=== PATIENT | female | born 1980 | race Caucasian/White ===

== ENCOUNTER 2025-09-16 09:42 | Outpatient (REF) | payer BC, SELFPAY ==
[2025-09-16 15:05] LABS: Total Hemoglobin (HGBA1C) 3841.7749 umol/L
[2025-09-16 15:38] LABS: Cholesterol 206 mg/dL (<200); HDL Cholesterol 40 mg/dL (>40); Triglycerides 176 mg/dL (<150)
[2025-09-16 15:46] LABS: Folate 13.5 ng/mL (> or = 4.0); Vitamin B12 469 pg/mL (200-900)
[2025-09-19 17:12] LABS: Lyme Abs Screen <0.90 index
[2025-09-23 06:53] LABS: Estradiol Ultra Sensitive 172 pg/mL
[2025-09-23 17:39] LABS: Testosterone, Free 13.1 pg/mL (0.1-6.4)
== END 2025-09-16 09:43 | disposition home or self-care (01) ==
LOC: HO.WFDLDS 09:42
PROVIDERS: PCP Internal Medicine; Visit Provider Internal Medicine
DX: Z00.00 Encounter for general adult medical examination without abnormal findings (principal); E34.9 Endocrine disorder, unspecified; R51.9 Headache, unspecified; E78.5 Hyperlipidemia, unspecified; H81.10 Benign paroxysmal vertigo, unspecified ear; M72.2 Plantar fascial fibromatosis; N95.1 Menopausal and female climacteric states; Z13.1 Encounter for screening for diabetes mellitus
CPT/HCPCS: 36415; 80061; 82607; 82627; 82670; 82746; 83036; 84144; 84402; 84403; 86617; 86618; 96127

== ENCOUNTER 2025-09-16 09:42 | Outpatient (AMB) | payer BC, SELFPAY ==
--- NOTE | 2025-09-16 09:44 | MHC.PC.OV ---
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. Transfer from Dr Artur Che-Has imitrex but has not used. Normal brain MRI in 2021January 2024-2 days ago started with vertigo. Has dramamine but not very effective. Had an episode earlier in the year after chiropractor. Had meclizine at the time Had consult with integrative medicine [facility]. Hormone testing-placed on testosterone and progesterone DHEA and red yeast rice Suffering from bilateral plantar fasciitis, heel pain. Walking daily. 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 Pap 03/2023 Has had callbacks for mammo in the past Mammo 12/2024 Colonoscopy 11/2024 ROS see HPI PHYSICAL EXAM: GENERAL: Alert and oriented x 3. NAD EYES: EOMI. Anicteric. HENT: Moist mucous membranes. No scleral icterus. No cervical lymphadenopathy. LUNGS: Clear to auscultation bilaterally. CARDIOVASCULAR: Regular rate and rhythm. No murmur. No JVD. ABDOMEN: Soft, non-tender +bs EXTREMITIES: No edema. Non-tender. SKIN: No rashes or lesions. Warm. NEUROLOGIC: No focal neurological deficits. CN II-XII grossly intact PSYCHIATRIC: Cooperative. Appropriate mood and affect [facility] Medical History Headache Eczema Kidney stone Surgical History H/O tubal ligation No pertinent past surgical history Family History Mother Heart attack Maternal Uncle Substance abuse Maternal Grandmother Cardiovascular disease Pancreatic cancer Father Brain cancer Lung cancer Social History Housing: House Alcohol intake: never Patient Tobacco Use Status: Never used Tobacco e-Cigarette/Vaping Use: Never Used Second Hand Smoke Exposure: No service: No Current occupational status: employed Current occupation: [employer] Current occupational exposures/hazards: No Cognitive needs: No Hearing needs: No Vision needs: No Questionnaire PHQ-9 Over the last 2 weeks, how often have you been bothered by any of the following problems? 1. Little interest or pleasure in doing things: not at all 2. Feeling down, depressed, or hopeless: not at all 3. Trouble falling or staying asleep, or sleeping too much: not at all 4. Feeling tired or having little energy: not at all 5. Poor appetite or overeating: not at all 6. Feeling bad about yourself - or that you are a failure or have let yourself or your family down: not at all 7. Trouble concentrating on things, such as reading the newspaper or watching television: not at all 8. Moving or speaking so slowly that other people could have noticed. Or the opposite - being so fidgety or restless that you have been moving around a lot more than usual: not at all 9. Thoughts that you would be better off or of hurting yourself in some way: not at all Total score: 0 Depression Screening Interpretation: Negative Depression Screening Done: Yes 89720 - PHQ-9 Billing: Yes Source: Developed by Drs. Vinicio Murillo, Analisa Palma, Carter Ortiz and colleagues, with an educational devyn from [employer]. Thrive Questionnaire Date Thrive assessed: 09/11/25 I am a: Patient What is your living situation today?: I have a steady place to live Within the past 12 months, did the food you bought not last and you didn't have the money to get more?: Never true Within the past 12 months, did you worry whether your food would run out before you got money to buy more?: Never true Do you have trouble paying for medicines?: No Do you have trouble getting transportation to medical appointments?: No Do you have trouble paying your heating and electricity bill?: No Do you have trouble taking care of your child, family member or friend?: No Do you have trouble with day-to-day activities such as bathing, preparing meals, shopping, managing finances, etc.?: No Are you currently unemployed and looking for a job?: No Are you interested in more education?: No Please select the resources that you would like help with: None Currently or been in a relationship where the following occur: No concerns reported THRIVE Score: 0 AUDIT C Alcohol Use Questionnaire (AUDIT-C) 1. How often do you have a drink containing alcohol?: Never 3. How often do you have six or more drinks on one occasion?: Never Total Score: 0 AUGUSTO-7 AMB Questionnaire AUGUSTO-7 Date AUGUSTO - 7 assessed: 09/16/25 Feeling nervous, anxious, or on edge: 0 = Not at all Not being able to stop or control worryin = Not at all Worrying too much about different things: 1 = Several days Trouble relaxin = Several days Being so restless that it is hard to sit still: 0 = Not at all Becoming easily annoyed or irritable: 0 = Not at all Feeling afraid as if something awful might happen: 0 = Not at all Total AUGUSTO-7 score (0-4 normal; 5-9 mild; 10-14 moderate; 15-21 severe): 2 Source: Developed by Drs. Vinicio Murillo, Analisa Palma, Carter Ortiz and colleagues, with an educational devyn from [employer]. AUGUSTO-7 Assessment Billing AUGUSTO-7 Assessment Tool: AUGUSTO-7 Assessment 69254 Physical exam (Primary Care) Vital Signs: Last Vital Signs Temp 98 F 09/16/25 09:51 Pulse 69 09/16/25 09:51 Resp 20 09/16/25 09:51 BP 138/78 09/16/25 09:51 Pulse Ox 97 09/16/25 09:51 Oxygen Delivery Method Room Air 09/16/25 09:51 BMI result Body Mass Index 26.0 Tobacco/Smoking Status: Tobacco use Status Tobacco use date assessed 09/16/25 09/16/25 09:54 Patient Tobacco Use Status Never used Tobacco 09/16/25 09:54 e-Cigarette/Vaping Use Never Used 09/16/25 09:54 PHQ-9: PHQ-9 Score PHQ-9: Total score 0 09/16/25 10:13 Depression Screening Interpretation: Negative Thrive Assessment: Date of Thrive Assessment Date Thrive assessed 09/11/25 09/16/25 09:45 Currently or been in a relationship where the following occur: No concerns reported Coding Level of Care Code New Pt Level 4 (14004) Complex EM visit Add On G2211 Diagnoses Physical exam Z00.00 Hyperlipidemia, unspecified hyperlipidemia type E78.5 Hyperlipidemia type: unspecified Hormone imbalance E34.9 Benign paroxysmal positional vertigo, unspecified laterality H81.10 Laterality: unspecified laterality Plantar fasciitis M72.2 Additional Codes AUGUSTO-7 Assessment Billing - AUGUSTO-7 Assessment Tool: AUGUSTO-7 Assessment 63323 ([id number]) PHQ-9 - 84951 - PHQ-9 Billing: Yes ([id number]) Assessment & Plan Assessment & Plan (1) Physical exam: Code(s): Z00.00 - Encounter for general adult medical examination without abnormal findings (2) Hyperlipidemia: Code(s): E78.5 - Hyperlipidemia, unspecified Category: Medical Qualifiers: Hyperlipidemia type: unspecified Qualified Code(s): E78.5 - Hyperlipidemia, unspecified (3) Hormone imbalance: Code(s): E34.9 - Endocrine disorder, unspecified Category: Medical (4) BPPV (benign paroxysmal positional vertigo): Code(s): H81.10 - Benign paroxysmal vertigo, unspecified ear Category: Medical Qualifiers: Laterality: unspecified laterality Qualified Code(s): H81.10 - Benign paroxysmal vertigo, unspecified ear (5) Plantar fasciitis: Code(s): M72.2 - Plantar fascial fibromatosis Category: Medical Plan Physical exam/establish care Past medical, surgical, social history reviewed Hormone imbalance. Recheck labs. Send to [facility]. Plantar fasciitis-exercises reviewed. voltaren getl. Walk fit [place] Vertigo-referral to PT for vestibular therapy. meclizine prn. Valium is severe Orders: Orders Hemoglobin A1c Today E78.5 - Hyperlipidemia, unspecified, N95.1 - Menopausal and female climacteric states Lipid Panel Today E78.5 - Hyperlipidemia, unspecified, N95.1 - Menopausal and female climacteric states DHEA Sulfate Today E34.9 - Endocrine disorder, unspecified PT Evaluation and Treatment Today E34.9 - Endocrine disorder, unspecified, H81.10 - Benign paroxysmal vertigo, unspecified ear Lyme IgG/IgM w/reflex to WB Today E78.5 - Hyperlipidemia, unspecified, H81.10 - Benign paroxysmal vertigo, unspecified ear, N95.1 - Menopausal and female climacteric states, R41.3 - Other amnesia Vitamin B12 and Folate Today E78.5 - Hyperlipidemia, unspecified, H81.10 - Benign paroxysmal vertigo, unspecified ear, N95.1 - Menopausal and female climacteric states, R41.3 - Other amnesia Progesterone Today E34.9 - Endocrine disorder, unspecified Estradiol Ultra Sensitive Today E34.9 - Endocrine disorder, unspecified Testosterone, Free/Total Today E34.9 - Endocrine disorder, unspecified XR Foot Gianfranco 3V Today M72.2 - Plantar fascial fibromatosis Medications: New meclizine 25 mg PO TID PRN 30 tabs 0RF vertigo diazepam (Valium) 2 mg PO BID PRN 30 tabs 0RF anxiety H81.10 - Benign paroxysmal vertigo, unspecified ear diclofenac sodium 1% (Voltaren Arthritis Pain) apply to single knee, ankle, foot; for foot includes sole/toes/top of foot 4 grams topical QID 100 grams 3RF
[2025-09-16 09:51] VITALS: BP 138/78; PULSE 69; RESP 20; TEMP 36.6; O2SAT 97; BMI 26.0
--- OUTSIDE RECORDS SUMMARY | 2025-09-16 10:48 | XMS_ITS ---
Author Name [facility] Organization Unknown Care Team Organization Name Specialty Phone Email Start Date End [facility] [place] [facility] P[facility] Primary [facility] 10/24/2022 07/12/2024
--- OUTSIDE RECORDS SUMMARY | 2025-09-16 10:48 | XMS_ITS | Clinical Summary ---
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 Name Role Phone Erwin Parks MD Primary Care Provider [phone] Allergies No known active allergies Medications No known medications Active Problems Problem Noted Date Diagnosed Date Osteoarthritis of carpometac arpal (CMC) joints of both thumbs 09/17/2022 Social History Tobacco Use Types Packs/Day Years Used Date Smoking Tobacco: Never Assessed Sex and Gender Information Value Date Recorded Sex Assigned at Female 09/17/2022 11:03 AM EDT Gender Identity Female 09/17/2022 11:03 AM EDT Sexual Orientation Not on file Job Start Date Occupation Industry Not on file Not on file Not on file Last Filed Vital Signs Vital Sign Reading Time Taken Comments Blood Pressure - - Pulse - - Temperature - - Respiratory Rate - - Oxygen Saturation - - Inhaled Oxygen Concentration - - Weight 80.7 kg (178 lb) 10/16/2022 3:59 PM EST Height 175.3 cm (5' 9 ) 10/16/2022 3:59 PM EST Body Mass Index 26.29 10/16/2022 3:59 PM EST Plan of Treatment Health Maintenance Due Date Last Done Comments Hepatitis B Vaccines (1 of 3 - 3-dose series) 1979 Hepatitis C Screening 1979 COVID-19 Vaccine (#1) 04/01/1980 Depression Screening 1991 BMI Counseling 1997 Preventative Health Evaluation 1997 DTap / Tdap / Td (1 - Tdap) 1998 Cervical Cancer Screening (P ap Smear) 2000 Colon Cancer Screening (Colonoscopy) 2024 Influenza Vaccine (#1) 2025 Pneumococcal Vaccine Aged Out No long er eligible based on patient's age to complete this topic RSV Ped < 20 months Aged Out No longe r eligible based on patient's age to complete this topic Care Teams 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
== END 2025-09-16 11:00 | disposition home or self-care (01) ==
LOC: HO.HMCFM 09:43
PROVIDERS: PCP Internal Medicine; Visit Provider Internal Medicine
DX: Z00.00 Encounter for general adult medical examination without abnormal findings (principal); E78.5 Hyperlipidemia, unspecified; E34.9 Endocrine disorder, unspecified; H81.10 Benign paroxysmal vertigo, unspecified ear; M72.2 Plantar fascial fibromatosis